=== PATIENT | female | born 1985 | race Caucasian/White ===

== ENCOUNTER → 2016-05-25 | Outpatient (CLI) | payer BC ==
[2016-05-25 10:24] LABS: HEMATOCRIT 39.8 % (37.0-47.0); MEAN CELL VOLUME 89.8 fl (81.0-99.0); MEAN CORPUSCULAR HGB 29.3 pg (27.0-31.0); MEAN CORPUSCULAR HGB CONC 32.7 g/dl (33.0-37.0); MEAN PLATELET VOLUME 10.1 fl (9.6-12.3); RED BLOOD COUNT 4.43 10*6/uL (4.10-5.10); RED CELL DISTRI WIDTH 13.4 % (0-14.5); WHITE BLOOD COUNT 7.7 10*3/uL (4.8-10.8)
[2016-05-25 11:06] LABS: ALKALINE PHOSPHATASE 101 U/L (45-117); BILIRUBIN, TOTAL 0.4 mg/dl (0.2-1.0); BUN 7 mg/dl (7-24); CARBON DIOXIDE 27 mmol/L (21-32); CHLORIDE 106 mmol/L (98-107); CHOLESTEROL 187 mg/dL (<200); EST GLOM FILT AFRICAN AMERICAN > 60 ml/min; GLUCOSE 93 mg/dL (65-99); HDL CHOLESTEROL 41 mg/dl (40-60); LDL CHOLESTEROL 113 mg/dL (9-159); SGOT/AST 31 IU/L (3-35); SGPT/ALT 66 U/L (12-78); SODIUM 142 mmol/L (136-145); TOTAL PROTEIN 7.7 gm/dL (6.4-8.2); TRIGLYCERIDES 163 mg/dl (<150); VLDL CHOLESTEROL 33 mg/dL (6-40)
[2016-05-25 11:25] LABS: FREE T4 0.83 ng/dl (0.76-1.46)
[2016-05-25 14:02] LABS: VITAMIN D, 25-HYDROXY 12.6 ng/mL (30-100)
== END | disposition home or self-care (01) ==
LOC: LAB 10:05
PROVIDERS: Family Medicine
DX: E55.9 Vitamin D deficiency, unspecified (principal); E66.8 Other obesity; F32.89 Other specified depressive episodes

== ENCOUNTER → 2022-03-03 | Outpatient (CLI) | payer BC ==
[2022-03-03 10:44] LABS: BASO # 0.1 10*3/uL (0.0-0.1); BASO % 0.8 % (0.0-1.0); EOS # 0.1 10*3/uL (0.0-0.4); EOS % 2.2 % (1.0-4.0); HEMATOCRIT 36.3 % (37.0-47.0); LYMPH # 1.7 10*3/uL (1.3-4.4); LYMPH % 27.2 % (27.0-41.0); MEAN CELL VOLUME 81.2 fl (81.0-99.0); MEAN CORPUSCULAR HGB 24.8 pg (27.0-31.0); MEAN CORPUSCULAR HGB CONC 30.6 g/dl (33.0-37.0); MEAN PLATELET VOLUME 10.9 fl (9.6-12.3); MONO # 0.4 10*3/uL (0.1-1.0); MONO % 5.8 % (3.0-9.0); NEUT % 63.8 % (47.0-73.0); PLATELET COUNT AUTOMATED 345 10*3/uL (130-400); RED BLOOD COUNT 4.47 10*6/uL (4.10-5.10); RED CELL DISTRI WIDTH 15.4 % (0-14.5); WHITE BLOOD COUNT 6.3 10*3/uL (4.8-10.8)
[2022-03-03 11:04] LABS: BUN 16 mg/dl (7-24); CHLORIDE 109 mmol/L (98-107); CREATININE 0.63 mg/dL (0.55-1.02); POTASSIUM 3.9 mmol/L (3.5-5.1); SGOT/AST 22 IU/L (3-35); SGPT/ALT 41 U/L (12-78); SODIUM 143 mmol/L (136-145)
[2022-03-03 11:08] LABS: ALKALINE PHOSPHATASE 125 U/L (45-117); IRON 30 ug/dL (50-170); TOTAL PROTEIN 7.6 gm/dL (6.4-8.2)
[2022-03-03 11:47] LABS: VITAMIN D, 25-HYDROXY 46.7 ng/mL (30-100)
[2022-03-08 03:05] LABS: ZINC, PLASMA 88 ug/dL (44-115)
== END | disposition home or self-care (01) ==
LOC: LAB 10:06
PROVIDERS: ATTEND Physician Assistant
DX: E53.8 Deficiency of other specified B group vitamins (principal); E55.9 Vitamin D deficiency, unspecified; Z98.84 Bariatric surgery status